=== PATIENT | male | born 1955 | race Caucasian/White ===

== ENCOUNTER 2017-02-22 09:54 | Outpatient (CLI) | payer BC ==
--- NOTE | 2017-02-22 17:26 | XRAY Report ---
THREE VIEW LEFT FOOT: 02/22/2017 CLINICAL INDICATION: Pain at base of 5th metatarsal for three weeks. AP, lateral, oblique views of the left foot demonstrate soft tissue swelling at the base of the 5th m etatarsal. There is no evidence of fracture or dislocation. The joint spaces are preserved. No rad iopaque foreign body is seen in the soft tissues. IMPRESSION: SOFT TISSUE SWELLING, BUT NO EVIDENCE OF FRACTURE OR FOREIGN BODY. JOB #: [id number] EXT JOB #:[id number]
== END 2017-02-22 09:55 | disposition home or self-care (01) ==
LOC: DI 09:54
PROVIDERS: ATTEND Internal Medicine
DX: M79.672 Pain in left foot (principal); M79.89 Other specified soft tissue disorders

== ENCOUNTER 2019-02-15 07:19 | Outpatient (CLI) | payer BC ==
--- NOTE | 2019-02-16 00:42 | XRAY Report ---
Reason: RIB PAIN Procedure Date: 02/15/2019 Accession Number: [id number] / [id number] Procedure: XR - Ribs w/PA Chest LT CPT Code: FULL RESULT: EXAM: LEFT RIB RADIOGRAPHY EXAM DATE: 02/15/2019 07:36 AM. CLINICAL HISTORY: RIB PAIN. Left rib pain. No trauma. Had axillary pain for past few months. COMPARISON: None. TECHNIQUE: 1 view of the chest and 2 views of the ribs. FINDINGS: Bones: Normal. No fracture or bone lesion. Lungs: No focal opacities. No pneumothorax. No pleural effusions. Mediastinum: Heart and mediastinal contours are unremarkable. Other: None. IMPRESSION: Normal chest and rib radiography. RADIA
== END 2019-02-15 07:20 | disposition home or self-care (01) ==
LOC: DI 07:19
PROVIDERS: ATTEND Nurse Practitioner Family
DX: R07.81 Pleurodynia (principal)

== ENCOUNTER 2019-02-25 08:04 | Outpatient (CLI) | payer BC | END 2019-02-25 08:05 | disposition home or self-care (01) | LOC: LAB 08:04 | PROVIDERS: ATTEND Urology | DX: R97.20 Elevated prostate specific antigen [PSA] (principal) | CPT/HCPCS: 36415; 84153 ==

== ENCOUNTER 2019-06-20 09:42 | Outpatient (CLI) | payer BC ==
--- NOTE | 2019-06-22 23:41 | Ultrasound Report ---
Reason: BILAT INGUINAL HERNIA Procedure Date: 06/20/2019 Accession Number: [id number] / [id number] Procedure: US - Pelvic Limited or F/U CPT Code: Final Report FULL RESULT: EXAM: INGUINAL ULTRASOUND EXAM DATE: 06/20/2019 10:53 AM. CLINICAL HISTORY: BILAT INGUINAL HERNIA. COMPARISON: None. TECHNIQUE: Real-time sonographic imaging of the inguinal canals and vascular structures, including color-flow, was performed by the manager telemarketing. Multiple sales service representative static images were saved for review. FINDINGS: Hernia: None identified with or without Valsalva bilaterally. Soft Tissues: No fluid collections or if it adenopathy. Nonspecific lateral inguinal lymph nodes with fatty lola. Other: None. IMPRESSION: No hernias identified. No mass lesions. RADIA
== END 2019-06-20 09:43 | disposition home or self-care (01) ==
LOC: DI 09:42
PROVIDERS: ATTEND Registered Nurse
DX: K40.20 Bilateral inguinal hernia, without obstruction or gangrene, not specified as recurrent (principal)
CPT/HCPCS: 76857

== ENCOUNTER 2020-03-26 21:09 | Outpatient (CLI) | payer BC ==
--- NOTE | 2020-03-27 10:01 | Ultrasound Report ---
PROCEDURE: Carotid Doppler Complete INDICATIONS: OCCLUSION OF LT VERTEBRAL ARTERY TECHNIQUE: Color and pulse Doppler interrogation was performed of both carotid systems, with image documentation and velocity measurements. COMPARISON: MRI brain 05/29/2015. FINDINGS: Right side: Common carotid artery peak systolic velocity: 102 cm/sec. Internal carotid artery peak systolic velocity: 94 cm/sec. Internal carotid artery end diastolic velocity: 23 cm/sec. External carotid artery peak systolic velocity: 132 cm/sec. ICA/CCA peak systolic ratio: 0.9 . Gaston scale imaging description: No visualized plaque Percent internal carotid artery stenosis: No significant stenosis . Vertebral artery: Flow direction is antegrade. Left side: Common carotid artery peak systolic velocity: 131 cm/sec. Internal carotid artery peak systolic velocity: 123 cm/sec. Internal carotid artery end diastolic velocity: 29 cm/sec. External carotid artery peak systolic velocity: 107 cm/sec. ICA/CCA peak systolic ratio: 0.9 . Gaston scale imaging description: No visualized plaque Percent internal carotid artery stenosis: No significant stenosis . Vertebral artery: Occluded IMPRESSION: 1. No hemodynamically significant stenosis within the internal carotid arteries bilaterally. 2. Occlusion of the left vertebral artery. The estimate of stenosis included in the report of the imaging study was calculated using the NASCET method Reviewed by: Fay Lechuga MD on 03/27/2020 10:00 AM PDT Approved by: Fay Lechuga MD on 03/27/2020 10:00 AM PDT Station ID: [id number]
== END 2020-03-26 21:10 | disposition home or self-care (01) ==
LOC: DI 21:09
PROVIDERS: ATTEND Nurse Practitioner Family
DX: I65.02 Occlusion and stenosis of left vertebral artery (principal); Z12.5 Encounter for screening for malignant neoplasm of prostate
CPT/HCPCS: 36415; 84153; 93880

== ENCOUNTER 2020-03-31 14:10 | Outpatient (CLI) | payer BC ==
[2020-03-31] MEDS ORDERED: GADOBUTROL 10 MMOL/10 ML VIAL ONE (14:25)
[2020-03-31] MEDS: GADOBUTROL 10 MMOL/10 ML VIAL IVP ONE (15:24)
--- NOTE | 2020-03-31 17:11 | MRI Report ---
PROCEDURE: Angio Neck W/WO (MRA) INDICATIONS: HEADACHE CONTRAST: IV CONTRAST: Gadavist ml: 8 TECHNIQUE: Axial and sagittal balanced GE through the neck. Coronal dynamic MRA after the administration of con trast in the arterial and venous phases, with rotating 3-dimensional maximum intensity projection (MO P) reformats constructed from subtraction images. COMPARISON: None. FINDINGS: Image quality: Excellent. The origins of the left and right common, internal and external carotid arteries demonstrate no areas of hemodynamically significant stenosis, vascular occlusion or aneurysmal dilation. Origin of the r ight vertebral artery demonstrates no areas of hemodynamically significant stenosis, vascular occlusi on or aneurysmal dilation. The left vertebral artery is identified in the distal aspect near the vert ebral basilar junction. Appears occluded or slow flow throughout the proximal and mid portions. Aorti c arch demonstrates conventional anatomy. Limited, visualized portions of the subclavian vasculature are unremarkable. IMPRESSION: Occlusion versus slow flow of the left vertebral artery within the proximal and mid portions. It is n oted occlusion was noted on carotid ultrasound of 03/27/2020. If indicated, CTA neck may be obtained. Reviewed by: Fay Lechuga MD on 03/31/2020 5:09 PM PDT Approved by: Fay Lechuga MD on 03/31/2020 5:09 PM PDT Station ID: [id number]
--- NOTE | 2020-03-31 17:37 | MRI Report ---
PROCEDURE: Angio Brain W/O (MRA) INDICATIONS: HEADACHES TECHNIQUE: Noncontrast axial 3-D yaiv-lu-patpat MR angiogram, with 3-dimensional maximum intensity projection (M IP) reformats of the internal carotid arteries and posterior circulation then performed. COMPARISON: Correlation is made with the accompanying MRI and neck angiogram, 03/31/2020. Correlation is made with prior brain MRI 05/29/2015 FINDINGS: Image quality: Excellent. Anterior circulation: Intracranial internal carotid arteries demonstrate normal size and intralumina l flow signal. The flow within the paired anterior cerebral arteries is normal and symmetric. The f low within the middle cerebral arteries is normal and symmetric. The anterior communicating artery i s seen. No stenoses, occlusions, or aneurysms. Posterior circulation: The right vertebral artery is dominant to the left. They join to form a normal appearing basilar artery. The flow within the posterior cerebral arteries is normal and symmetric. No stenoses, occlusions, or aneurysms. IMPRESSION: No significant intracranial arterial abnormalities are seen. The right vertebral artery is dominant to the left. Reviewed by: Marcos Esquivel MD on 03/31/2020 4:35 PM FITO Approved by: Marcos Esquivel MD on 03/31/2020 4:35 PM FITO Station ID: [id number]
== END 2020-03-31 14:11 | disposition home or self-care (01) ==
LOC: DI 14:10
PROVIDERS: ATTEND Registered Nurse
DX: R51 Headache (principal); I77.9 Disorder of arteries and arterioles, unspecified
CPT/HCPCS: 70544; 70549; A9585

== ENCOUNTER 2020-04-08 15:41 | Outpatient (CLI) | payer BC ==
[2020-04-08] MEDS ORDERED: GADOBUTROL 10 MMOL/10 ML VIAL ONE (15:55)
[2020-04-08] MEDS ORDERED: GADOBUTROL 10 MMOL/10 ML VIAL IVP ONE (16:41)
--- NOTE | 2020-04-08 17:13 | MRI Report ---
PROCEDURE: Brain W/WO INDICATIONS: HEADACHE CONTRAST: IV CONTRAST: Gadavist ml: 8 TECHNIQUE: Noncontrast axial T1 spin echo, axial T2 fast spin echo, sagittal and axial FLAIR, coronal T2 fast sp in echo, axial gradient echo, axial diffusion and ADC through the brain. After the administration of contrast, axial and coronal T1 spin echo with fat saturation through the brain. COMPARISON: Brain MRI 05/29/2015. FINDINGS: Image quality: Excellent. CSF spaces: Basal cisterns are patent. No extra-axial fluid collections. Ventricles are normal in size and shape. Brain: No midline shift. No intracranial bleeds or masses. No abnormal intracranial enhancement. There is mild cerebral volume loss for age. There is brgu-mm-hqxdacgo periventricular white matter c hronic small vessel ischemic change has progressed in the interval since prior exam. The brainstem a ppears normal. Diffusion-weighted images demonstrate no acute ischemic insults. 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 Normal intravascular flow voids are present. Dural sinuse s demonstrate normal postcontrast enhancement. Skull and face: Calvarial marrow is normal in signal. Orbits appear normal. Sinuses: Sinuses and mastoids appear clear. IMPRESSION: 1. No acute intracranial disease process. 2. 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 No new areas of infarction identified. 3. No abnormal intracranial mass or mass effect. 4. No suspicious postcontrast enhancement. 5. No intracranial hemorrhage. 6. Mild, diffuse cerebral volume loss. 7. Ujvz-ro-hhiiqbjd periventricular and subcortical white matter chronic microvascular ischemic grijalva e. Reviewed by: Rama Hensley MD, PhD on 04/08/2020 5:12 PM PDT Approved by: Rama Hensley MD, PhD on 04/08/2020 5:12 PM PDT Station ID: [id number]
== END 2020-04-08 15:42 | disposition home or self-care (01) ==
LOC: DI 15:41
PROVIDERS: ATTEND Registered Nurse
DX: I67.82 Cerebral ischemia (principal); G31.89 Other specified degenerative diseases of nervous system
CPT/HCPCS: 70553; A9585

== ENCOUNTER 2021-11-10 14:15 | Outpatient (CLI) | payer BC, MEDICARE ==
--- NOTE | 2021-11-10 16:01 | Ultrasound Report ---
PROCEDURE: Testicle INDICATIONS: SWELLING OF SCROTUM TECHNIQUE: Real-time scanning was performed of the scrotum and testicles, with image documentation. Color and p ulse Doppler interrogation was performed of both testicles. COMPARISON: None. FINDINGS: Right: Testicle is normal in size at 4.6 x 1.8 x 2.9 cm, and homogenous in echotexture. Epididymis is normal in overall size. Echogenic area involving right epididymal head measures 5 x 3 x 4 mm in si ze and shown no internal vascularity. Small to moderate right hydrocele is seen with internal debris is. No varicoceles.. Overlying scrotal skin is normal in thickness. Left: Testicle is normal in size at 4.8 x 1.8 x 3.1 cm, and homogeneous in echotexture. Epididymis is normal in overall size. Echogenic focus measures 5 x 2 x 5 mm in size is seen in left epididymal h ead without internal vascularity. No hydrocele. Left-sided varicoceles are noted. Overlying scrotal skin is normal in thickness. Doppler: Color and pulse Doppler demonstrate normal and symmetric arterial flow in both testicles. IMPRESSION: 1. Small to moderate right hydrocele with internal debris. 2. Normal-appearing bilateral testes. No evidence of testicular torsion. 3. Echogenic foci in bilateral epididymal head as above and show no internal vascularity. Finding lik shira represent benign epididymal lesion such as a sperm granuloma. Suggest sonographic follow-up. 4. Mild left-sided varicoceles. Reviewed by: Minh Bills MD on 11/10/2021 3:59 PM PDT Approved by: Minh Bills MD on 11/10/2021 3:59 PM PDT Station ID: [id number]
== END 2021-11-10 14:16 | disposition home or self-care (01) ==
LOC: DI 14:15
PROVIDERS: ATTEND Registered Nurse
DX: N43.3 Hydrocele, unspecified (principal); R93.89 Abnormal findings on diagnostic imaging of other specified body structures; I86.1 Scrotal varices

== ENCOUNTER 2022-10-02 08:02 | Outpatient (CLI) | payer MEDICARE ==
--- NOTE | 2022-10-02 10:11 | XRAY Report ---
PROCEDURE: Calcaneus RT INDICATIONS: RIGHT HEEL PAIN TECHNIQUE: Two views of the calcaneus were acquired. COMPARISON: None. FINDINGS: Bones: No acute fractures or dislocations. No suspicious bony lesions. Soft tissues: No suspicious calcifications. IMPRESSION: No acute osseous abnormality. If symptoms persist or there is continued clinical concern, further nilda luation with MRI or CT may be helpful. Reviewed by: Shadi Tipton MD on 10/02/2022 10:09 AM PDT Approved by: Shadi Tipton MD on 10/02/2022 10:09 AM PDT Station ID: [id number]
== END 2022-10-02 08:03 | disposition home or self-care (01) ==
LOC: DI 08:02
PROVIDERS: ATTEND Podiatrist
DX: M79.671 Pain in right foot (principal)

== ENCOUNTER 2022-10-07 13:16 | Outpatient (CLI) | payer MEDICARE ==
--- NOTE | 2022-10-09 13:45 | MRI Report ---
PROCEDURE: LOWER LEG (TIB-FIB) WO - RT INDICATIONS: ACHILLES TENOSYNOVITIS TECHNIQUE: Noncontrast coronal and sagittal T1 spin echo and STIR; axial T1 spin echo and T2 fast spin echo with fat saturation through the right lower leg. COMPARISON: None. FINDINGS: Image quality: Excellent. There is moderate to severe thickening of the Achilles tendon in its mid substance with some increase d intrasubstance signal consistent with moderate to severe tendinopathy. There is also some mild-to-m oderate increased signal involving the peritenon consistent with acute inflammation. Bones: The visualized bone marrow demonstrates normal signal on all sequences. The overlying cortex appears intact. No fractures lines or intra-osseous lesions. Soft tissues: The scanned muscles demonstrate normal overall bulk and internal signal. Subcutaneous tissues appear normal as well. No soft tissue masses are present. IMPRESSION: 1. Moderate to severe thickening involving the Achilles tendon its midsubstance with associated incre ased intrasubstance signal consistent with moderate to severe tendinopathy. 2. Mild to moderate increased signal surrounding the peritenon of the Achilles tendon consistent with acute inflammation. Reviewed by: Efrain Noriega MD on 10/09/2022 8:47 AM PDT Approved by: Efrain Noriega MD on 10/09/2022 8:47 AM PDT Station ID: [id number]
== END 2022-10-07 13:17 | disposition home or self-care (01) ==
LOC: DI 13:16
PROVIDERS: ATTEND Podiatrist
DX: M65.871 Other synovitis and tenosynovitis, right ankle and foot (principal)

== ENCOUNTER 2023-03-10 17:45 | Outpatient (CLI) | payer MEDICARE | END 2023-03-10 23:59 | disposition EMS.NT | LOC: EMS 17:45 | DX: S61.211A Laceration without foreign body of left index finger without damage to nail, initial encounter (principal); W26.0XXA Contact with knife, initial encounter; Y93.G1 Activity, food preparation and clean up; Y92.009 Unspecified place in unspecified non-institutional (private) residence as the place of occurrence of the external cause ==

== ENCOUNTER 2023-05-21 07:14 | Outpatient (CLI) | payer MEDICARE ==
--- NOTE | 2023-05-21 13:38 | Ultrasound Report ---
PROCEDURE: Ext Limited Non Vascular INDICATIONS: RIGHT FOOT MASS TECHNIQUE: Real-time scanning was performed of the right foot, with image documentation. COMPARISON: Right calcaneus radiographs 10/02/2022. FINDINGS: At the patient indicated palpable area of concern at the medial right foot, there is a 1.2 x 0.5 x 1.2 cm oval anechoic lesion superficial to the adjacent osseous structure. No internal vascu larity is seen. Findings are consistent with a benign cyst. IMPRESSION: Benign anechoic oval cyst measuring 1.2 cm corresponds to the palpable area of concern i n the subcutaneous tissues at the medial right foot. Reviewed by: Shadi Tipton MD on 05/21/2023 1:36 PM PST Approved by: Shadi Tipton MD on 05/21/2023 1:36 PM PST Station ID: [id number]
== END 2023-05-21 07:15 | disposition home or self-care (01) ==
LOC: DI 07:14
PROVIDERS: ATTEND Registered Nurse
DX: R22.41 Localized swelling, mass and lump, right lower limb (principal)

== ENCOUNTER 2023-11-07 15:47 | Outpatient (CLI) | payer MEDICARE ==
--- NOTE | 2023-11-07 17:22 | MRI Report ---
PROCEDURE: Knee LT WO INDICATIONS: L KNEE PAIN TECHNIQUE: Noncontrast sagittal PD fast spin echo and T2 fast spin echo with fat saturation, sagittal 3-D gradie nt sequence with fat saturation; coronal T1 spin echo and PD fast spin echo with fat saturation, and axial PD fast spin echo with fat saturation through the knee. COMPARISON: None. FINDINGS: Image quality: Excellent. Menisci: Oblique tear involving posterior horn of medial meniscus is seen extending to inferior artic ulating surface. There is peripheral displacement of medial meniscus bowing medial collateral ligamen t. The lateral meniscus is intact. The meniscal root ligaments appear intact. Cruciate ligaments: The anterior and posterior cruciate ligaments appear intact. Medial structures: The medial collateral ligament appears mildly thickened near its femoral insertio n. Visualized portions of the pes anserinus tendons appear normal. No abnormal bursal fluid. Lateral structures: The lateral collateral ligament, long and short heads of the biceps femoris tend on appear intact. The popliteus tendon appears normal. Iliotibial band appears normal. Anterior structures: The quadriceps and patellar tendons appear intact. Patellar alignment is rowdy l. No femoral trochlear dysplasia or ventral trochlear prominence. No edema in the infrapatellar fa t pad. Bones and cartilage: Mftm-kj-xwxxuxuc tricompartmental osteoarthritis and chondromalacia is seen most notably in medial femoral tibial compartment. Edema involving weightbearing portion of medial tibial plateau medial periphery is seen without discrete fracture line. No other area of abnormal marrow si gnal. Joint space: There is small to moderate knee joint fluid. No Burns's cyst. Normal appearing synovi al plicae are incidentally noted. IMPRESSION: 1. Oblique tear involving posterior horn of medial meniscus extending to inferior articular surface. Peripheral displacement of medial meniscus bowing medial collateral ligament. No lateral meniscal tea r. 2. The cruciate ligaments are intact. 3. Mild MCL sprain near its femoral insertion. 4. Mild to moderate tricompartmental osteoarthritis and chondromalacia most notably medial femoral ti bial compartment. Contusion involving medial periphery of medial tibial plateau weightbearing portion . No fracture or dislocation. Small to moderate joint effusion, no gross loose bodies. Reviewed by: Minh Bills MD on 11/07/2023 5:21 PM PDT Approved by: Minh Bills MD on 11/07/2023 5:21 PM PDT Station ID: [id number]
== END 2023-11-07 15:48 | disposition home or self-care (01) ==
LOC: DI 15:47
PROVIDERS: ATTEND Orthopaedic Surgery Adult Reconstructive Orthopaedic Surgery
DX: S83.242A Other tear of medial meniscus, current injury, left knee, initial encounter (principal); S83.412A Sprain of medial collateral ligament of left knee, initial encounter; M17.12 Unilateral primary osteoarthritis, left knee; M25.462 Effusion, left knee; S80.12XA Contusion of left lower leg, initial encounter

== ENCOUNTER 2023-11-15 10:45 | Outpatient (CLI) | payer MEDICARE ==
[2023-11-15] MEDS ORDERED: iohexoL-300 100 ML VIAL ONE (10:51)
[2023-11-15] MEDS ORDERED: DIATRIZOATE MEGLU/DIATRIZO SOD 30 ML BOTTLE PO ONE (10:51)
[2023-11-15] MEDS: iohexoL-300 100 ML VIAL IVP ONE (13:29)
[2023-11-15] MEDS: DIATRIZOATE MEGLU/DIATRIZO SOD 30 ML BOTTLE PO ONE (13:30)
--- NOTE | 2023-11-15 16:39 | CT Report ---
PROCEDURE: Abdomen/Pelvis W INDICATIONS: LOWER ABD PAIN CONTRAST: Omni 300 100ml TECHNIQUE: After the administration of intravenous contrast, a CT scan of the abdomen and pelvis was performed. Images were recorded and evaluated at appropriate window settings. Reformats: coronal and sagittal. F or radiation dose reduction, the following was used: automated exposure control, adjustment of mA and /or kV according to patient size. COMPARISON: No relevant comparisons at time of dictation. FINDINGS: Image quality: Diagnostic. Lower chest: Unremarkable. Liver: Small hypoattenuating lesion at the liver dome, too small to characterize by CT but probably a small cyst. Gallbladder and biliary tree: No radiopaque stones or wall thickening. No biliary dilation. Spleen: No splenomegaly. Pancreas: No pancreatic ductal dilation. Adrenals: No adrenal nodule. Kidneys and ureters: No hydronephrosis. No renal cystic lesion which requires follow up. No solid mas s. Stomach, bowel and peritoneum: No bowel distension. No pathologic free fluid. Diverticulosis without evidence of diverticulitis. Normal appendix. Lymph nodes: No central or retroperitoneal adenopathy. Vessels: No infrarenal aortic aneurysm. PELVIS Reproductive organs: Unremarkable. Bladder: No abnormal wall thickening, accounting for underdistention. Pelvic lymph nodes: No pelvic adenopathy by size criteria. Bones: No aggressive osseous abnormality. Degenerative changes of the lower lumbar spine, without dis placed fracture. Other: No significant ventral or inguinal hernia. Tiny umbilical hernia containing fat. IMPRESSION: Mild degenerative disc disease of the lumbar spine. Colonic diverticulosis without evidence of diverticulitis. Reviewed by: Valdez Somers MD on 11/15/2023 4:38 PM PDT Approved by: Valdez Somers MD on 11/15/2023 4:38 PM PDT Station ID: [id number]
== END 2023-11-15 10:46 | disposition home or self-care (01) ==
LOC: DI 10:45
PROVIDERS: ATTEND Nurse Practitioner Family
DX: K57.30 Diverticulosis of large intestine without perforation or abscess without bleeding (principal); M51.36 Other intervertebral disc degeneration, lumbar region
CPT/HCPCS: 74177; Q9963; Q9967

== ENCOUNTER 2023-11-15 10:46 | Outpatient (CLI) | payer MEDICARE ==
--- NOTE | 2023-11-15 18:09 | Ultrasound Report ---
PROCEDURE: Pelvic Limited INDICATIONS: GROIN PAIN TECHNIQUE: Real-time transabdominal scanning was performed of the groin organs, with image documentation. COMPARISON: Same day CT abdomen and pelvis. FINDINGS: Targeted ultrasound of the bilateral inguinal region demonstrates no sonographic evidence of a solid mass. No inguinal hernia bilaterally as seen on same day CT abdomen and pelvis. IMPRESSION: Targeted ultrasound of the bilateral inguinal region demonstrates no sonographic evidence of a solid mass or hernia. Reviewed by: Donell Hill MD on 11/15/2023 6:07 PM PDT Approved by: Donell Hill MD on 11/15/2023 6:07 PM PDT Station ID: [id number]
== END 2023-11-15 10:47 | disposition home or self-care (01) ==
LOC: DI 10:46
PROVIDERS: ATTEND Nurse Practitioner Family
DX: R10.31 Right lower quadrant pain (principal); R10.32 Left lower quadrant pain

== ENCOUNTER 2023-11-15 10:58 | Outpatient (CLI) | payer MEDICARE ==
[2023-11-15 11:25] LABS: ALBUMIN 4.5 g/dL (3.2-5.5); ALBUMIN/GLOBULIN RATIO 1.5 (1.0-2.2); BILIRUBIN,TOTAL 0.6 mg/dL (0.2-1.0); CALCIUM 9.9 mg/dL (8.5-10.3); CREATININE 0.9 mg/dL (0.6-1.3); TOTAL PROTEIN 7.6 g/dL (6.4-8.9)
== END 2023-11-15 10:59 | disposition home or self-care (01) ==
LOC: LAB 10:58
PROVIDERS: ATTEND Nurse Practitioner Family
DX: R10.9 Unspecified abdominal pain (principal)
CPT/HCPCS: 36415; 80053

== ENCOUNTER 2024-04-07 08:47 | Outpatient (CLI) | payer MEDICARE ==
--- NOTE | 2024-04-07 11:36 | MRI Report ---
Knee RT WO CLINICAL INFORMATION: 68 years of age, Male, OSTEOARTHRITIS OF THE KNEE. COMPARISON: None Technique: Multisequence, multiplanar MRI of the right knee was performed without intravenous contras t. FINDINGS: Menisci: In the medial meniscus, there is a complex tear of the meniscocapsular junction of the poste rior horn, extending to a high-grade radial tear of the meniscus body. The meniscus body is extremely diminutive and is markedly extruded. The lateral meniscus is unremarkable. Cruciate ligaments: The anterior and posterior cruciate ligaments are intact. MCL/LCL: The MCL is unremarkable. The biceps femoris tendon is unremarkable. The fibular collateral ligament is unremarkable. The iliotibial band is intact. The popliteus muscle and tendon also appear intact. Extensor mechanism: The quadricep tendon is unremarkable. The patella tendon is unremarkable. Suprapa tellar fat pad edema. No Hoffa's fat pad edema. Patellofemoral joint: Alignment within the patellofemoral joint is normal. The patellofemoral ligame nts are intact. Mild chondral irregularity of the central trochlea. Cartilage and bone: In the medial compartment, there is chondral denudation of the weightbearing port ion medial femoral condyle, and the tibial plateau, with marked subchondral marrow edema. There is mi ld chondral irregularity of the nonweightbearing portion of the medial femoral condyle. Cartilage of the lateral compartment is grossly well maintained. No acute fracture. Miscellaneous: Small knee effusion. No popliteal cyst. No intra-articular bodies are identified. Mil d tendinosis of the distal semimembranosus. Low-grade interstitial tear of the proximal tendon of the medial head of the gastrocnemius. Small ganglion cyst about the proximal tibiofibular articulation. IMPRESSION: 1.Tear of the medial meniscus. 2.Severe, medial compartment predominant chondrosis with marked subchondral marrow edema. 3.Small knee effusion. Reviewed by: Lucy Jason MD on 04/07/2024 11:35 AM PDT Approved by: Lucy Jason MD on 04/07/2024 11:35 AM PDT Station ID: [id number]
== END 2024-04-07 08:48 | disposition home or self-care (01) ==
LOC: DI 08:47
PROVIDERS: ATTEND Orthopaedic Surgery Adult Reconstructive Orthopaedic Surgery
DX: S83.231A Complex tear of medial meniscus, current injury, right knee, initial encounter (principal); M94.261 Chondromalacia, right knee; M25.461 Effusion, right knee